=== PATIENT | male | born 1995 | race Caucasian/White ===

== ENCOUNTER 2019-02-22 21:29 | Emergency (ER) | payer OTHER ==
[~2019-02-22] VITALS: Ht 170.2 cm; Wt 72.7 kg
[~2019-02-22 21:29] MED LIST: NO HOME MEDICATIONS
[2019-02-22 21:34] VITALS: BP 128/62; PULSE 79; TEMP 98.5
== END 2019-02-22 22:17 | disposition left against medical advice (07) ==
LOC: COL.ER 21:29
DX: R42 Dizziness and giddiness (principal)

== ENCOUNTER 2024-03-03 06:26 | Emergency (ER) | payer BC ==
[~2024-03-03] VITALS: Ht 175.3 cm; Wt 89.5 kg
[2024-03-03 06:38] VITALS: TEMP 97.6
[2024-03-03 07:53] LABS: BASO % 0.4 % (0.0-2.0); EOS # 0.4 K/mm3 (0.0-0.7); EOS % 4.6 % (0.0-4.0); GRAN # 5.3 K/mm3 (1.4-6.5); GRAN % 67.1 % (42.2-75.2); HEMATOCRIT 44.2 % (42.0-52.0); HEMOGLOBIN 15.8 g/dl (13.5-18.0); LYMPH # 1.7 K/mm3 (1.2-3.4); LYMPH % 21.2 % (20.0-51.0); MEAN CELL VOLUME 94 fl (80.0-100.0); MEAN CORPUSCULAR HEMOGLOBIN 34 pg (27-31); MEAN CORPUSCULAR HGB CONC 36 g/dl (33.0-37.0); MEAN PLATELET VOLUME 9.5 fl (7.4-10.4); MONO # 0.5 K/mm3 (0.1-0.6); MONO % 6.6 % (1.7-9.3); PLATELET COUNT 213 K/mm3 (130-400); REDCELL DISTRIBUTION WIDTH-CV 13.6 % (11.5-14.5)
[2024-03-03 08:08] LABS: BILIRUBIN,TOTAL 0.2 mg/dL (0.2-1.2); CALCIUM 8.8 mg/dL (8.4-10.2); CREATININE, serum 1.07 mg/dL (0.72-1.25); POTASSIUM 3.9 mEq/L (3.5-4.5); TOTAL PROTEIN 7.2 g/dl (6.2-8.1)
[2024-03-03 08:16] VITALS: BP 123/78; PULSE 90
[2024-03-03 08:26] LABS: MONOSCREEN NEGATIVE
[2024-03-03 08:54] LABS: TSH w REFLEX 90.776 uIU/mL (0.350-4.940)
== END 2024-03-03 08:16 | disposition home or self-care (01) ==
LOC: COL.ER 06:26
PROVIDERS: Emergency Medicine
DX: J02.9 Acute pharyngitis, unspecified (principal); E03.9 Hypothyroidism, unspecified; F17.210 Nicotine dependence, cigarettes, uncomplicated; Z87.09 Personal history of other diseases of the respiratory system